=== PATIENT | female | born 1975 | race Caucasian/White ===

== ENCOUNTER 2022-01-01 15:18 | Outpatient (CLI) | payer MEDICARE, SELFPAY ==
--- NOTE | ~2022-01-01 | MR_ITS ---
EXAMINATION: MR cervical spine wo con DATE: 01/01/2022 16:08 INDICATION: Cervical radiculopathy. TECHNIQUE: Magnetic resonance imaging (MRI) of the cervical spine was performed without intravenous c ontrast. Sequences included sagittal T2-weighted FSE, sagittal T2-weighted FS FSE, sagittal T1-weight ed FSE, axial MERGE, and axial T2-weighted FSE. COMPARISON: Cervical spine MRI 03/05/2011, radiographs 12/26/2021 FINDINGS: There is mild kyphosis of cervical spine. Vertebral body heights are normal. There is mildl y decreased disc height at C5-C6. The spinal cord signal intensity is normal. The following disc leve ls are specifically discussed: C2-C3: The disc does not extend beyond the endplate margin. There is no uncovertebral joint osteoarth ritis. There is mild bilateral facet joint osteoarthritis. There is no neural foraminal stenosis. The re is no central canal stenosis. C3-C4: There is a small central extrusion. There is no uncovertebral joint osteoarthritis. There is m ild bilateral facet joint osteoarthritis. There is no neural foraminal stenosis. There is mild centra l canal stenosis. C4-C5: The disc does not extend beyond the endplate margin. There is mild left uncovertebral joint os teoarthritis. There is mild left facet joint osteoarthritis. There is no neural foraminal stenosis. T here is no central canal stenosis. C5-C6: There is a small central extrusion. There is mild bilateral uncovertebral joint osteoarthritis . There is mild bilateral facet joint osteoarthritis. There is no neural foraminal stenosis. There is no central canal stenosis. C6-C7: The disc is bulging. There is mild bilateral uncovertebral joint osteoarthritis. There is no f acet joint osteoarthritis. There is no neural foraminal stenosis. There is mild central canal stenosi s. C7-T1: The disc does not extend beyond the endplate margin. There is no uncovertebral joint osteoarth ritis. There is mild right facet joint osteoarthritis. There is no neural foraminal stenosis. There i s no central canal stenosis. IMPRESSION: 1. Mild cervical spondylosis, slightly worsened from 03/05/2011. Reviewed, dictated and finalized at location B.
== END 2022-01-01 15:19 | disposition home or self-care (01) ==
LOC: ANHIMG 15:20
PROVIDERS: PCP Internal Medicine; Visit Provider Nurse Practitioner
DX: M47.22 Other spondylosis with radiculopathy, cervical region (principal)
CPT/HCPCS: 72141

== ENCOUNTER 2022-06-23 21:43 | Emergency (ER) | payer MEDICARE, SELFPAY ==
[2022-06-23 21:47] VITALS: BP 149/80; PULSE 108; RESP 16; TEMP 37.1; O2SAT 98
--- NOTE | 2022-06-23 23:05 | PC.NURSE ---
Pt approached triage desk and states she is going to go home. Pt told to come back to ED for worsening s/s. Educated on risks of leaving and benefits of staying to see provider. Verbalized understanding. Pt ambulated out of ED with steady gait, in no obvious distress.
== END 2022-06-24 01:22 | disposition left against medical advice (07) ==
PROVIDERS: PCP Internal Medicine
DX: R11.2 Nausea with vomiting, unspecified (principal)
CPT/HCPCS: 99199

== ENCOUNTER 2022-06-26 20:56 | Emergency (ER) | payer MEDICARE, SELFPAY ==
[2022-06-26 21:07] VITALS: BP 156/86; PULSE 90; RESP 15; TEMP 36.6; O2SAT 99
== END 2022-06-26 22:00 | disposition left against medical advice (07) ==
PROVIDERS: PCP Internal Medicine
DX: Z53.21 Procedure and treatment not carried out due to patient leaving prior to being seen by health care provider (principal)
CPT/HCPCS: 99199